=== PATIENT | male | born 1935 | race Caucasian/White ===

== ENCOUNTER → 2021-06-12 | Outpatient (CLI) | payer MEDICARE | END | disposition home or self-care (01) | LOC: SHCH 12:02 | PROVIDERS: ATTEND Internal Medicine Cardiovascular Disease | DX: I08.0 Rheumatic disorders of both mitral and aortic valves (principal); I48.0 Paroxysmal atrial fibrillation; R60.0 Localized edema; Z95.0 Presence of cardiac pacemaker | CPT/HCPCS: 93306; 93356; 93970 ==

== ENCOUNTER 2023-09-15 10:04 | Emergency (ER) | payer MEDICARE ==
[~2023-09-15] VITALS: Ht 177.8 cm; Wt 104.3 kg
[~2023-09-15 10:04] MED LIST: ALBU90AE IH; ASPI-1012 PO; BLOO-1103 MC; ESOM40CA54 PO; FLEC50TA3 PO; FLUD0.1T2 PO; GABA-534 PO; HYDR20TA24 PO; LACT1CAP81 PO; METO25TA6 PO; MONT-39 PO; MULT-1258 PO; RIVA15TA PO; SYMB8060 IH
[2023-09-15 10:52] LABS: BASOPHILS # (AUTO) 0.02 K/uL (0.00-0.20); BASOPHILS % (AUTO) 0.3 % (0.0-5.0); EOSINOPHILS # (AUTO) 0.19 K/uL (0.00-0.70); EOSINOPHILS % (AUTO) 2.4 % (0.0-8.0); HEMATOCRIT 45.4 % (42-54); IMMATURE GRANULOCYTE ABSOLUTE 0.02 K/uL (0-1); LYMPHOCYTES # (AUTO) 1.2 K/uL (1.0-4.8); LYMPHOCYTES % (AUTO) 15.6 % (21.0-51.0); MEAN CORPUSCULAR HEMOGLOBIN 31.8 pg (27.0-33.0); MEAN CORPUSCULAR HGB CONC 34.6 g/dL (32.0-36.0); MEAN CORPUSCULAR VOLUME 91.9 fL (79-99); MONOCYTES # (AUTO) 0.8 K/uL (0.1-1.0); MONOCYTES % (AUTO) 9.4 % (3.0-13.0); NEUTROPHILS # (AUTO) 5.7 K/uL (1.8-7.7); PLATELET COUNT (AUTO) 216 K/uL (130-400); RED BLOOD CELL COUNT(AUTO) 4.94 MIL/uL (4.50-6.20); RED CELL DISTRIBUTION WIDTH 13.9 % (11.0-15.5)
[2023-09-15 11:06] LABS: CREATININE 1.9 mg/dL (0.5-1.5)
[2023-09-15 11:08] LABS: ALBUMIN 3.4 g/dL (3.5-5.0); TOTAL PROTEIN, SERUM 7.1 g/dL (6.0-8.3); URIC ACID 8.1 mg/dL (2.6-7.2)
[2023-09-15] MEDS: ONDANSETRON 4MG INJ IVP ONE (11:47)
[2023-09-15] MEDS: HYDROCORTISONE SOD SUCCINATE 100 MG/2 ML VIAL IV ONE (11:47)
[2023-09-15] MEDS: MORPHINE 2 MG SYG IVP ONE (11:47)
[2023-09-15 12:30] VITALS: BP 100/67; PULSE 83; RESP 18; O2SAT 94
[2023-09-15] MEDS ORDERED: COLC0.6T73 PO (12:30)
[2023-09-15] MEDS ORDERED: BENZ-39 PO (12:30)
== END 2023-09-15 12:44 | disposition home or self-care (01) ==
LOC: EDH 10:04
DX: M10.9 Gout, unspecified (principal); E11.22 Type 2 diabetes mellitus with diabetic chronic kidney disease; N18.9 Chronic kidney disease, unspecified; E11.65 Type 2 diabetes mellitus with hyperglycemia; J06.9 Acute upper respiratory infection, unspecified; M79.672 Pain in left foot; E78.00 Pure hypercholesterolemia, unspecified; K21.9 Gastro-esophageal reflux disease without esophagitis; J44.9 Chronic obstructive pulmonary disease, unspecified; Z20.822 Contact with and (suspected) exposure to COVID-19; Z79.82 Long term (current) use of aspirin; Z79.899 Other long term (current) drug therapy; Z98.890 Other specified postprocedural states; Z90.49 Acquired absence of other specified parts of digestive tract; Z88.2 Allergy status to sulfonamides
CPT/HCPCS: 99285; 96374; 71045; 96375; 87426; 84484; 84550; 80053; 85025; 87040 ×2; 36415; 73630; 93005; J2270; J1720; J2405